=== PATIENT | male | born 1950 | race Caucasian/White ===

== ENCOUNTER 2023-10-26 11:54 | Emergency (ER) | payer MEDICARE ==
[2023-10-26 12:52] LABS: INFLUENZA A NAA NEGATIVE (NEGATIVE); INFLUENZA B NAA NEGATIVE (NEGATIVE); RESPIRATORY SYNCYTIAL VIR NAA NEGATIVE (NEGATIVE)
[2023-10-26 12:58] LABS: CORONAVIRUS COVID-19 NAA NEGATIVE (NEGATIVE); STREP A BY PCR NOT DETECTED (NOT DETECT)
== END 2023-10-26 14:10 | disposition home or self-care (01) ==
LOC: KA.ED 11:54
DX: J02.9 Acute pharyngitis, unspecified (principal); E78.00 Pure hypercholesterolemia, unspecified; E66.9 Obesity, unspecified; Z79.82 Long term (current) use of aspirin; Z79.899 Other long term (current) drug therapy; Z68.30 Body mass index [BMI] 30.0-30.9, adult
CPT/HCPCS: 0241U; 87651-QW; 99283